=== PATIENT | female | born 1955 | race Caucasian/White ===

== ENCOUNTER → 2017-08-31 | Outpatient (CLI) | payer OTHER ==
--- NOTE | 2017-08-31 09:55 | CT ---
EXAMINATION TYPE: CT abdomen pelvis wo con DATE OF EXAM: 08/31/2017 HISTORY: Bilat kidney pain, kidney stone per order CT DLP: 817 mGycm. Automated Exposure Control for Dose Reduction was Utilized. TECHNIQUE: CT scan of the abdomen and pelvis is performed without oral or IV contrast. COMPARISON: NONE FINDINGS: Within the limitations of a non-contrast study, the following observations are made. LUNG BASES: Dependent atelectasis right lung base remains present. LIVER/GB: In the periphery right hepatic lobe there is 4.1 x 2.7 cm hypodense lesion corresponds to h emangioma on recent multi phase contrast-enhanced urogram study. PANCREAS: No significant abnormality is seen. SPLEEN: No significant abnormality is seen. ADRENALS: No significant abnormality is seen. KIDNEYS: There is increase in prominence of calcifications dependently in the lower pole calyx left k idney on axial image 46, this is difficult to assess if this is multiple small adjacent calculi or a large lobulated single calculus. Area of involvement measures 17 mm in width on axial image 46. There are 2-3 small punctate calculi mid to lower pole collecting system left kidney superior to this on c urrent study. There is prominence of the renal calyces without pelvic dilatation or hydroureter simil ar to prior. In the right kidney there is similar finding with group of calculi or large calculus dependently in l ower pole calyx that is more prominent versus prior on axial image 63 measuring up to 14 mm in length . Scattered throughout remainder of right kidney there are 5-6 punctate calculi measuring 3 mm or sma ller in size on current study fairly similar prior. On current exam there is suspected. 3 proximal ur eter calculi seen best on coronal images 24 and 25 measuring up to 4 mm in diameter on axial image 72 , length of distal calculus is roughly 7 mm on coronal image 35. This is causing moderate to severe r ight-sided geneva caliectasis and proximal hydroureter. There is dependent 3 mm calculus in bladder on axial image 116 felt separate from UVJ. There is no roman spicious left-sided hydroureter. Scattered pelvic phleboliths are seen. BOWEL : There is poor distention of left and sigmoid colon making evaluation at this level suboptima l. Normal-appearing appendix is incidentally noted. There is interval improvement in fecal burden thr oughout the colon. GENITAL ORGANS: No gross abnormality seen. LYMPH NODES: No greater than 1cm abdominal or pelvic lymph nodes are appreciated. OSSEOUS STRUCTURES: Mild to moderate joint space loss in both hips is present. OTHER: There is mild to moderate calcified plaque of aorta extending into pelvic branch vessels. IMPRESSION: 1. Interval progression in size and number of bilateral renal calculi. There are 2-3 obstructing prox imal right ureter calculi causing moderate to severe right-sided hydronephrosis currently. A Yellow message has been communicated to Freddie Carrasco MD via the [facility] system on 08/31/2017 9:53 AM, Message ID [id number].
== END | disposition home or self-care (01) ==
LOC: RADCTMAIN 08:17
PROVIDERS: ATTEND Urology
DX: N13.2 Hydronephrosis with renal and ureteral calculous obstruction (principal)
CPT/HCPCS: 74176

== ENCOUNTER → 2017-09-13 | Outpatient (CLI) | payer OTHER ==
--- NOTE | 2017-09-13 15:07 | XR ---
EXAMINATION TYPE: XR chest 2V DATE OF EXAM: 09/13/2017 COMPARISON: None HISTORY: 62 year-old female shortness of breath, bronchitis, COPD TECHNIQUE: Frontal and lateral views FINDINGS: The cardiomediastinal silhouette, aorta, and pulmonary vasculature are within normal limits. Lungs an d pleural spaces are clear. IMPRESSION: No acute cardiopulmonary process.
== END | disposition home or self-care (01) ==
LOC: RADXRMAIN 12:22
PROVIDERS: ATTEND Family Medicine
DX: J44.9 Chronic obstructive pulmonary disease, unspecified (principal)
CPT/HCPCS: 71020

== ENCOUNTER → 2017-12-15 | Outpatient (CLI) | payer OTHER ==
--- NOTE | 2017-12-15 11:46 | XR ---
EXAMINATION TYPE: XR KUB DATE OF EXAM: 12/15/2017 COMPARISON: NONE INDICATION: Kidney stones TECHNIQUE: Single view abdomen frontal projection FINDINGS: There is a normal colonic bowel gas pattern. Psoas margins are normal. No organomegaly is present. Minimal scoliosis is present. Multiple small calcifications over the mid pole left kidney measuring approximately 0.3 cm each. Uret eral stones are not identified. Some additional calcification may be at the inferior pole left kidney measuring approximately 0.6 cm. IMPRESSION: 1. Multiple left-sided renal stones
== END | disposition home or self-care (01) ==
LOC: RADXRMAIN 11:17
PROVIDERS: ATTEND Urology
DX: N20.0 Calculus of kidney (principal)
CPT/HCPCS: 74018

== ENCOUNTER → 2019-01-26 | Outpatient (CLI) | payer OTHER ==
--- NOTE | 2019-01-26 15:03 | CT ---
EXAMINATION TYPE: CT abdomen pelvis wo con DATE OF EXAM: 01/26/2019 COMPARISON: Prior CT 08/31/2017 HISTORY: Bilateral flank pain. CT DLP: 618 mGycm Automated exposure control for dose reduction was used. TECHNIQUE: Helical acquisition of images from the lung bases through the pelvis. FINDINGS: Lack of intravenous contrast could compromise sensitivity. LUNG BASES: No significant abnormality is appreciated. AORTA: No significant abnormality is appreciated. LIVER/GB: Low-attenuation focus within the right lobe of the liver has decreased in size in the inter pia now measuring only 3 cm in AP dimension, gallbladder is unremarkable. PANCREAS: No significant abnormality is seen. SPLEEN: No significant abnormality is seen. ADRENALS: No significant abnormality is seen. KIDNEYS: Similar appearance to prior exam. Left kidney somewhat atrophic, pelvic caliectasis as well as nephrolithiasis, no ureteral calcification. Calculi present at the lower pole measure approximatel y 17 mm in transverse dimension, the proximal right ureteral calculus is no longer present. Smaller s cattered calcifications present in the mid and upper pole similar to prior exam, hydronephrosis has r esolved. REPRODUCTIVE ORGANS: Absent. URINARY BLADDER: No significant abnormality is seen. BOWEL: No significant abnormality is seen. FREE AIR: No Free Air is visible. ASCITES: None visible. PELVIC ADENOPATHY: None visualized. RETROPERITONEAL ADENOPATHY: No Retroperitoneal Adenopathy visible. OSSEOUS STRUCTURES: No significant interval change is seen. IMPRESSION: IMPROVEMENT IN RIGHT HYDRONEPHROSIS, RIGHT PROXIMAL URETERAL CALCULUS IS NOT PRESENT. BILATERAL NEPHR OLITHIASIS. ADDITIONAL FINDINGS ABOVE. NONCONTRAST EXAM.
== END ==
LOC: RADCTMAIN 12:12
PROVIDERS: ATTEND Urology
DX: N13.2 Hydronephrosis with renal and ureteral calculous obstruction (principal)
CPT/HCPCS: 74176

== ENCOUNTER → 2019-03-16 | Outpatient (CLI) | payer OTHER ==
--- NOTE | 2019-03-16 11:35 | MR ---
EXAMINATION TYPE: MR brain wo/w con DATE OF EXAM: 03/16/2019 COMPARISON: None HISTORY: Seizures, Memory loss TECHNIQUE: Multiplanar, multisequence images of the brain and brainstem is performed without and with IV contras t, utilizing 6.5 mL intravenous Gadavist . FINDINGS: Diffusion weighted images demonstrate no evidence of a recent infarct or other diffusion ab normality. Ventricular systems compatible with the patient's age. No midline shift or mass effect. Abnormal signal the mildred is suggestive of remote areas of infarction. There are multiple focal areas of abnormal signal seen throughout the white matter in a nonspecific p attern but most typical remote microvascular ischemia. Abnormal signal seen in the left thalamus and in the basal ganglia suggestive of remote lacunar infarcts. Midline structures demonstrate normal morphology. The craniocervical junction appears within normal limits. Post contrast images demonstrate no abnormal enhancement. The dural venous sinuses appear pa tent. Changes of chronic sinusitis noted. IMPRESSION: 1. Nonspecific white matter changes. Remote microvascular ischemia most likely etiology. Other consid erations and the differential diagnosis includes Lyme's disease and demyelinating process, hypertensi on and migraine headaches. 2. Findings suggest remote lacunar infarction involving the basal ganglia, left thalamus and milrded
== END | disposition home or self-care (01) ==
LOC: RADMRIMAIN 09:31
PROVIDERS: ATTEND Psychiatry & Neurology Clinical Neurophysiology
DX: R90.82 White matter disease, unspecified (principal)
CPT/HCPCS: 70553; A9585

== ENCOUNTER → 2019-08-08 | Outpatient (CLI) | payer OTHER ==
--- NOTE | 2019-08-08 10:56 | XR ---
EXAMINATION TYPE: XR KUB DATE OF EXAM: 08/08/2019 10:40 AM CLINICAL HISTORY: Bilateral percutaneous nephrostomy 6 weeks ago TECHNIQUE: Single supine KUB image of the abdomen is obtained. COMPARISON: None. FINDINGS: The patient describes bilateral percutaneous nephrostomy tubes are not visualized and have been removed. There are multiple left-sided calculi, at least 9 in number measuring up to 7 mm. There is change in morphology in comparison to the prior. The right renal shadow is obscured by colonic fe osiel stasis of the ascending and transverse colon. There is a mild levoscoliosis of the lumbar spine a nd diffuse osseous demineralization. Multiple phleboliths are seen within the pelvis, overall similar appearing with atherosclerosis also noted in the pelvis. No dilated bowel. IMPRESSION: 1. Multiple left-sided renal calculi are seen (measuring up to 7 mm and at least 9 in number) that ap pear changed in morphology from the prior, possibly positional or projectional. 2. Obscuration of the right renal shadow by right hemicolonic fecal stasis.
== END | disposition home or self-care (01) ==
LOC: RADXRMAIN 10:24
PROVIDERS: ATTEND Urology
DX: N20.0 Calculus of kidney (principal)
CPT/HCPCS: 74018